=== PATIENT | female | born 1970 | race Caucasian/White ===

== ENCOUNTER 2019-05-15 22:19 | Emergency (ER) | payer MEDICAID ==
--- NOTE | 2019-05-15 22:55 | ED Physician Chart ---
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 swelling decreased movement thumb Allergies:: Allergies Allergy/AdvReac Type Severity Reaction Status Date / Time No Known Allergies Allergy Verified 05/15/19 22:26 Vitals:: Vital Signs - 8 hr 05/15/19 22:20 Temp 98.7 F HR 90 RR 18 BP 144/80 O2 Sat % 98 ED Review of Systems - Review of Systems General/Constitutional: No fever Skin: Other (distal nail bruising) Head: No headache Eyes: No loss of vision ENT: No earache Cardio Vascular: No chest pain Pulmonary: No SOB GI: No vomiting G/U: No dysuria Musculoskeletal: Bone or joint pain, Other (finger pain bruising distal nail) Endocrine: No polyuria Psychiatric: No depression, No anxiety Allergic/Immuno: No urticaria Neurological: No syncope ED Past Medical History - Past Medical History Past Medical History: No significant medical hx Family Medical History - Family Member Mother History Unknown: Yes ED Physical Exam - Physical Examination General/Constitutional: Awake, Well-developed, well-nourished Head: Atraumatic Eyes: Lids, conjuctiva normal Other Skin comments:: bruising thumb nail Neck: Nontender Respiratory: Nl effort/Exclusion Cardio Vascular: RRR GI: No tenderness/rebounding/guarding : No CVA tenderness Other Extremities comments:: pain swelling distal nail bruising ED Assessment - Assessment General Assessment: thumb nail contusion ED Septic Shock - . Is Septic Shock (SBP<90, OR Lactate>4 mmol\L) present?: No - <6hrs of presentation: Vital Signs: Vital Signs - 8 hr 05/15/19 22:20 Temp 98.7 F HR 90 RR 18 BP 144/80 O2 Sat % 98 ED Reassessment (Disposition) - Reassessment Reassessment:: thumb nail contusion - Diagnosis Diagnosis:: as above - Patient Disposition Discharge/Transfer:: Home Condition at Disposition:: Stable
--- NOTE | 2019-05-16 09:43 | Diagnostic Imaging Report ---
Right thumb 3 views Indication: pain Comparison: none Findings: Mild degenerative changes are noted. No evidence of an acute fracture or dislocation. No focal soft tissue swelling. 1 mm density along the volar soft tissues of the first distal phalanx.. Impression: No evidence of an acute fracture. 1 mm density seen along the volar soft tissues of the first distal phalanx, significance doubtful. Correlate clinically. In the setting of trauma, if clinical symptoms persist and there is continued concern for an occult fracture, follow up exams in 5-7 days is suggested.
== END 2019-05-15 23:14 | disposition home or self-care (01) ==
LOC: ER 22:19
DX: S60.111A Contusion of right thumb with damage to nail, initial encounter (principal); W23.0XXA Caught, crushed, jammed, or pinched between moving objects, initial encounter; Y93.89 Activity, other specified; Y92.89 Other specified places as the place of occurrence of the external cause; Y99.8 Other external cause status
CPT/HCPCS: 73140-TC-F5; Z7502